=== PATIENT | male | born 1960 | race Hispanic/Latino ===

== ENCOUNTER 2020-06-15 10:25 | Outpatient (AMBR) | payer MEDICAID, SELFPAY ==
--- NOTE | 2020-06-15 19:00 | PT.ODAYNRPT ---
PT Outpatient Daily Note Date of Service: 06/15/20 OP Daily Note Visit Reasons: post op knee Outpatient Physical Therapy Treatment Date: 06/15/20 Subjective: Pt has been ill and not able to come to therapy. He is feeling better now and wants to continue. Objective: See F/S for therex MT: PPM into knee flexion with STM anterior knee x7' Assessment: Good improvement with knee flexion PROM to about 113 deg today with overpressure and good end-range tolerance. Plan: Continue per POC Length of Time (minutes) of Treatment: 30 Minutes Office Procedures PT Procedures PT Date of Service: 06/15/20 Therapeutic Exercise 30 minutes: Yes
== END 2020-06-23 23:59 | disposition home or self-care (01) ==
PROVIDERS: Referring Provider Nurse Practitioner; Visit Provider Nurse Practitioner
DX: Z98.890 Other specified postprocedural states (principal); I10 Essential (primary) hypertension; R73.03 Prediabetes
CPT/HCPCS: 97110

== ENCOUNTER 2020-07-22 10:59 | Outpatient (AMBR) | payer MEDICAID, SELFPAY ==
--- NOTE | 2020-06-30 15:46 | PT.ODAYNRPT ---
PT Outpatient Daily Note Date of Service: 06/30/20 OP Daily Note Visit Reasons: post op knee pain Outpatient Physical Therapy Treatment Date: 06/30/20 Subjective: Overall better with walking and bending the knee Objective: SEe F/S for therex MT: PPM knee flexion with STM to anterior knee to end-range x7' Knee flexion PROM: 120 deg Assessment: Good improvement with knee flexion PROM to 120 deg with overpressure. Continued lateral sway to the R with gait. Plan: Continue per POC Length of Time (minutes) of Treatment: 30 Minutes Office Procedures PT Procedures PT Date of Service: 06/30/20 Therapeutic Exercise 30 minutes: Yes
--- NOTE | 2020-07-16 08:40 | PT.ODAYNRPT ---
PT Outpatient Daily Note Date of Service: 07/16/2020 OP Daily Note Visit Reasons: post op knee pain Outpatient Physical Therapy Treatment Date: 07/16/20 Subjective: pt doing good upon visit. Objective: see flow sheet. Assessment: at first pt had his L foot lower on the baseboard for the TG squats but then cued pt to lower the R foot as well so he can push up with BLE equally. his knee flexion AROM is about 90 degrees with TG squats. with heel slides noted his knee flexion was not passed 90 degrees. assisted him with pushing the SB to increase his ROM in which caused discomfort but advised him to increase his ROM for improved mobility. he tolerated the MT PROM of the knee flexion as he kept talking throughout the reps. with PROM his knee flexion is about 115 degrees. Plan: continue POC per PT. Length of Time (minutes) of Treatment: 30 Minutes Office Procedures PT Procedures PT Date of Service: 06/30/20 Therapeutic Exercise 30 minutes: Yes PT Procedures PT Date of Service: 07/16/20 Therapeutic Exercise 30 minutes: Yes
--- NOTE | 2020-07-19 19:02 | PT.ODAYNRPT ---
PT Outpatient Daily Note Date of Service: 07/19/20 OP Daily Note Visit Reasons: post op knee pain Outpatient Physical Therapy Treatment Date: 07/19/20 Subjective: Overall better with walking and bending the knee Objective: See F/S for therex MT: PPM knee flexion with STM to anterior knee to end-range x7' Assessment: Good improvement with knee strength with lunging and squatting. Less lateral sway to the R with gait. Plan: Continue per POC Length of Time (minutes) of Treatment: 30 Minutes Office Procedures PT Procedures PT Date of Service: 06/30/20 Therapeutic Exercise 30 minutes: Yes PT Procedures PT Date of Service: 07/16/20 Therapeutic Exercise 30 minutes: Yes PT Procedures PT Date of Service: 07/19/20 Therapeutic Exercise 30 minutes: Yes
--- NOTE | 2020-07-22 19:51 | PT.ODAYNRPT ---
PT Outpatient Daily Note Date of Service: 07/22/20 OP Daily Note Visit Reasons: post op knee pain Outpatient Physical Therapy Treatment Date: 07/22/20 Subjective: Overall better with walking and bending the knee Objective: See F/S for therex MT: PPM knee flexion to end-range x7' Assessment: Good improvement with knee strength with lunging and squatting. Less lateral sway to the R with gait. Good overpressure tolerance into end-range knee flexion. Plan: Continue per POC Length of Time (minutes) of Treatment: 30 Minutes Office Procedures PT Procedures PT Date of Service: 06/30/20 Therapeutic Exercise 30 minutes: Yes PT Procedures PT Date of Service: 07/16/20 Therapeutic Exercise 30 minutes: Yes PT Procedures PT Date of Service: 07/22/20 Therapeutic Exercise 30 minutes: Yes PT Procedures PT Date of Service: 07/19/20 Therapeutic Exercise 30 minutes: Yes
== END 2020-07-24 23:59 | disposition home or self-care (01) ==
PROVIDERS: PCP Family Medicine; Referring Provider Family Medicine; Visit Provider Family Medicine
DX: M25.561 Pain in right knee (principal); I10 Essential (primary) hypertension
CPT/HCPCS: 97110

== ENCOUNTER 2020-08-23 11:38 | Outpatient (AMBR) | payer MEDICAID, SELFPAY ==
--- NOTE | 2020-07-27 17:25 | PT.ODAYNRPT ---
PT Outpatient Daily Note Date of Service: 07/27/20 OP Daily Note Visit Reasons: post op knee pain Outpatient Physical Therapy Treatment Date: 07/27/20 Subjective: The knee has been overall better and he is walking with less of a limp Objective: See F/S for therex Assessment: Pt is ambulating without full knee extension but has full PROM knee extension. Plan: Improve knee extension with gait. Length of Time (minutes) of Treatment: 30 Minutes Office Procedures PT Procedures PT Date of Service: 07/27/20 Therapeutic Exercise 30 minutes: Yes
--- NOTE | 2020-08-03 12:52 | PT.ODAYNRPT ---
PT Outpatient Daily Note Date of Service: 08/03/20 OP Daily Note Visit Reasons: post op knee pain Outpatient Physical Therapy Treatment Date: 08/03/20 Subjective: The knee has been overall better and he is walking with less of a limp Objective: See F/S for therex MT: PPM into knee flexion to end-range x5' Assessment: Pt is ambulating without full knee extension but has full PROM knee extension. Plan: Improve knee extension with gait. Length of Time (minutes) of Treatment: 30 Minutes Office Procedures PT Procedures PT Date of Service: 08/03/20 Therapeutic Exercise 30 minutes: Yes PT Procedures PT Date of Service: 07/27/20 Therapeutic Exercise 30 minutes: Yes
--- NOTE | 2020-08-06 13:59 | PT.ODAYNRPT ---
PT Outpatient Daily Note Date of Service: 08/06/2020 OP Daily Note Visit Reasons: post op knee pain Outpatient Physical Therapy Treatment Date: 08/06/20 Subjective: pt states his legs are sore due to work from carrying 25lbs while walking short distance. Objective: see flow sheet. Assessment: pt had to stop a few time during the exercises and reps due to being sore prior to exercises. pt had difficulty with SLR exercises. he is not able to lift with knee extension due to weakness and soreness. added SAQs in which he had to activate the quads and hold for each rep. no difficulty with the SAQs but was very fatigued. LLPS with ice pack and added weight and he tolerated well with no complaints. Plan: continue POC per PT. Length of Time (minutes) of Treatment: 30 Minutes Office Procedures PT Procedures PT Date of Service: 08/03/20 Therapeutic Exercise 30 minutes: Yes PT Procedures PT Date of Service: 07/27/20 Therapeutic Exercise 30 minutes: Yes PT Procedures PT Date of Service: 08/06/20 Therapeutic Exercise 30 minutes: Yes
--- NOTE | 2020-08-11 14:21 | PT.ODS1RPT ---
PT OP Progress/Discharge Note Date of Service: 08/11/20 Progress Note/DC Note Progress Note/Discharge Note: Progress Note Patient Information Visit Reasons: post op knee pain Service Continue Service or Discharge: Continue Service Certification Date Certification Dates: 08/03/20 to 10/03/20 extend POC dates Status Subjective: The knee has been overall better but it's hard to straighten the knee fully. He would like to continue with therapy. Objective: R knee ArOM: PROM: Flexion: 110 deg 118 deg Extension: -5 deg full with overpressure Strength: quads: 3+/5 HS: 4-/5 MT: PPM into knee extension to end-range x5' Assessment: Pt has attended 09/04 Rx visits and made progress with therapy goals. He has improved knee flexion PROM to almost the goal of 120 deg but extension is lacking about 5 deg. Quad strength is lacking which may be affecting gait. Pt is ambulating without full knee extension but has full PROM knee extension. Pt would benefit from continued therapy in order to improve extension ROM and quad strength. Plan: Continue with visits to improve knee extension with gait. Extend POC dates 08/03/20 to 10/03/20 Office Procedures PT Procedures PT Date of Service: 08/03/20 Therapeutic Exercise 30 minutes: Yes PT Procedures PT Date of Service: 08/11/20 Therapeutic Exercise 30 minutes: Yes PT Procedures PT Date of Service: 07/27/20 Therapeutic Exercise 30 minutes: Yes PT Procedures PT Date of Service: 08/06/20 Therapeutic Exercise 30 minutes: Yes
--- NOTE | 2020-08-13 11:35 | PT.ODAYNRPT ---
PT Outpatient Daily Note Date of Service: 08/13/2020 OP Daily Note Visit Reasons: post op knee pain Outpatient Physical Therapy Treatment Date: 08/13/20 Subjective: pt states his knee has been hurting more upon visit. Objective: see flow sheet. Assessment: cued pt to lower his bottom in order to increase knee flexion in which it did bother him. educated pt about the increase in knee flexion which could cause discomfort and muscle fatigue. he ambulated with antalgic gait due to increase in pain of the knee. added thera band to his walking exercise in which he completed fine. he tolerates the LLPS with ice pack and added weight. Plan: continue POC per PT. Length of Time (minutes) of Treatment: 30 Minutes Office Procedures PT Procedures PT Date of Service: 08/03/20 Therapeutic Exercise 30 minutes: Yes PT Procedures PT Date of Service: 08/11/20 Therapeutic Exercise 30 minutes: Yes PT Procedures PT Date of Service: 08/13/20 Therapeutic Exercise 30 minutes: Yes PT Procedures PT Date of Service: 07/27/20 Therapeutic Exercise 30 minutes: Yes PT Procedures PT Date of Service: 08/06/20 Therapeutic Exercise 30 minutes: Yes
--- NOTE | 2020-08-17 13:13 | PT.ODAYNRPT ---
PT Outpatient Daily Note Date of Service: 08/17/20 OP Daily Note Visit Reasons: post op knee pain Outpatient Physical Therapy Treatment Date: 08/17/20 Subjective: The knee has been overall better but it's hard to straighten the knee fully. He would like to continue with therapy. Objective: See F/S for therex Assessment: He has improved knee flexion PROM to almost the goal of 120 deg but extension is lacking about 5 deg. Quad strength is lacking which may be affecting gait. Pt is ambulating without full knee extension but has full PROM knee extension. Pt would benefit from continued therapy in order to improve extension ROM and quad strength. Plan: Continue with visits to improve knee extension with gait. Length of Time (minutes) of Treatment: 30 Minutes Office Procedures PT Procedures PT Date of Service: 08/03/20 Therapeutic Exercise 30 minutes: Yes PT Procedures PT Date of Service: 08/11/20 Therapeutic Exercise 30 minutes: Yes PT Procedures PT Date of Service: 08/13/20 Therapeutic Exercise 30 minutes: Yes PT Procedures PT Date of Service: 08/17/20 Therapeutic Exercise 30 minutes: Yes PT Procedures PT Date of Service: 07/27/20 Therapeutic Exercise 30 minutes: Yes PT Procedures PT Date of Service: 08/06/20 Therapeutic Exercise 30 minutes: Yes
--- NOTE | 2020-08-23 19:47 | PT.ODAYNRPT ---
PT Outpatient Daily Note Date of Service: 08/23/20 OP Daily Note Visit Reasons: post op knee pain Outpatient Physical Therapy Treatment Date: 08/23/20 Subjective: The knee has been overall better but it's hard to straighten the knee fully. He would like to continue with therapy. Objective: See F/S for therex Assessment: He has improved knee flexion PROM to almost the goal of 120 deg but extension is lacking about 5 deg. Quad strength is lacking which may be affecting gait. Pt is ambulating without full knee extension but has full PROM knee extension. Pt would benefit from continued therapy in order to improve extension ROM and quad strength. Plan: Reassess Length of Time (minutes) of Treatment: 30 Minutes Office Procedures PT Procedures PT Date of Service: 08/03/20 Therapeutic Exercise 30 minutes: Yes PT Procedures PT Date of Service: 08/11/20 Therapeutic Exercise 30 minutes: Yes PT Procedures PT Date of Service: 08/13/20 Therapeutic Exercise 30 minutes: Yes PT Procedures PT Date of Service: 08/17/20 Therapeutic Exercise 30 minutes: Yes PT Procedures PT Date of Service: 07/27/20 Therapeutic Exercise 30 minutes: Yes PT Procedures PT Date of Service: 08/06/20 Therapeutic Exercise 30 minutes: Yes PT Procedures PT Date of Service: 08/23/20 Therapeutic Exercise 30 minutes: Yes
== END 2020-08-23 23:59 | disposition home or self-care (01) ==
PROVIDERS: PCP Family Medicine; Referring Provider Family Medicine; Visit Provider Family Medicine
DX: M25.561 Pain in right knee (principal); I10 Essential (primary) hypertension; R73.03 Prediabetes
CPT/HCPCS: 97110

== ENCOUNTER 2020-08-25 11:29 | Outpatient (AMBR) | payer MEDICAID, SELFPAY ==
--- NOTE | 2020-08-25 14:24 | PT.ODS1RPT ---
PT OP Progress/Discharge Note Date of Service: 08/25/20 Progress Note/DC Note Progress Note/Discharge Note: DC Note Patient Information Visit Reasons: post op knee pain Service Continue Service or Discharge: Discharge Discharge Date: 08/25/20 Status Subjective: Pt reports less knee pain since starting therapy and that he can bend it better. He is prepared to D/C from therapy. Objective: R knee AROM: PROM: Flexion: 110 deg 120 deg Extension: full Strength: Quads and HS: 4/5 Assessment: Pt has attended 16 Rx visits and met ROM and gait goals. Pt has full PROM to 120 deg and is ambulating community distances. Pt is able to ascend/descend stairs. Plan: D/C with [facility] Office Procedures PT Procedures PT Date of Service: 08/25/20 Therapeutic Exercise 30 minutes: Yes
== END 2020-08-25 18:08 | disposition home or self-care (01) ==
LOC: HODPTST 11:29
PROVIDERS: PCP Family Medicine; Referring Provider Family Medicine; Visit Provider Family Medicine
DX: M25.561 Pain in right knee (principal); R26.2 Difficulty in walking, not elsewhere classified; I10 Essential (primary) hypertension; R73.03 Prediabetes
CPT/HCPCS: 97110